=== PATIENT | female | born 1985 | race Caucasian/White ===

== ENCOUNTER → 2016-11-13 | Day surgery (SDC) | payer OTHER ==
[~2016-11-13] VITALS: Ht 165.1 cm; Wt 98.2 kg
[~2016-11-13] MED LIST: ADVIL200 MG PO; DOXYCYCLINE100 MG PO; MOTRIN800 MG PO; TRAMADOL HCL50 MG PO
--- NOTE | ~2016-11-13 | OR ---
PATIENT'S NAME: ROSALINO CAMPOVERDE [facility] AGE: 31 Y [address] ROOM: [place] [address] [place] [facility] [place]: [place]13/2016 OR/Procedure Report DISCHARGE DATE: FAMILY PHYSICIAN: Rebeka Vines ATTENDING PHYSICIAN: ANJELICA ARNOLD SURGEON: Anjelica Arnold MD TOOL SHAPER SET UP OPERATOR: None. DATE OF PROCEDURE: 11/13/2016 PROCEDURE PERFORMED: Suction dilation and curettage. PREOPERATIVE DIAGNOSIS: Embryonic demise at approximately 9 weeks. Blood type AB positive. POSTOPERATIVE DIAGNOSIS: Embryonic demise at approximately 9 weeks. Blood type AB positive. ALLERGIES: THE PATIENT HAS AN ALLERGY TO AMOXICILLIN AND CODEINE. ANESTHESIA: General. FINDINGS: She had an approximately [id number] uterus. Appropriate amount of products of conception removed. SPECIMENS: Products of conception. ESTIMATED BLOOD LOSS: 100 mL. ANTIBIOTICS: 100 mg of doxycycline IV. COMPLICATIONS: None. DISPOSITION: The patient is stable and sent to PACU. INDICATIONS FOR PROCEDURE: The patient is a 31-year-old G1, P0, who was initially evaluated at an outside ultrasound facility on November 09, for an early viability ultrasound. They were unable to find heart tones at that time. The patient was approximately 10 weeks gestational age by her LMP, but was measuring approximately 9 weeks by crown-rump length. Repeat ultrasound was performed at our office transvaginally with again no findings of heart tones. The fetus did appear to be approximately 9 weeks in size. The couple was counseled that this was consistent with an embryonic demise. She was counseled regarding her options including expectant management, medical management with Cytotec, and surgical management with dilation and curettage, and she opted to proceed with surgical management. The patient was seen in the preoperative area where all consents were reviewed and signed with PATIENT'S NAME: ROSALINO CAMPOVERDE [facility] AGE: 31 Y [address] ROOM: [place] [address] [place] [facility] [place]: 11/13/2016 OR/Procedure Report DISCHARGE DATE: FAMILY PHYSICIAN: Rebeka Vines ATTENDING PHYSICIAN: ANJELICA ARNOLD. She was aware of the risks of the procedure to include, but not limited to risk of bleeding, risk of infection, risks associated with anesthesia, risk of thromboembolism, risk of injury to bowel and bladder, and risk of possible uterine perforation. DESCRIPTION OF PROCEDURE: The patient was taken back to the operating room where a time-out was performed to confirm correct patient and correct procedure. She was placed under general anesthesia without difficulty. She was placed in dorsal lithotomy position with legs in candy-cane stirrups. She was prepped and draped in the usual sterile fashion. A weighted speculum was placed, and a Montse used to retract anteriorly to see the cervix. A single- toothed tenaculum was applied to the cervix and gentle traction applied. Cervix was progressively dilated to accommodate a 9 mm suction curette. Suction device was tested and found to be adequate. Suction curette was gently advanced, suction started, and products removed. Several passes were made with the suction curette, and then sharp curettage was performed until a gritty texture was noted throughout the uterus. Two to three additional passes were made gently with the suction curette to ensure no further remaining products. The tenaculum was removed from the cervix, and sites appeared to be hemostatic. All remaining instruments were removed from the vagina. All needle, sponge, and instrument counts were noted to be correct x2, and the patient was taken back to the recovery room in stable condition. MD ERIC CERVANTES/shoshanal /[id number] d: 11/13/16 1538 t: 11/16/16 0355, OPERATIVE SUMMARY
[2016-11-13 06:41] LABS: BASOPHIL % 0.2 %; EOSINOPHIL # 0.1 K/uL (0.0-0.5); EOSINOPHIL % 2.1 %; HEMATOCRIT 38.1 % (33.0-46.0); HEMOGLOBIN 12.9 g/dL (11.0-15.0); IMMATURE GRANULOCYTE % 0.4 %; LYMPHOCYTE # 1.7 K/uL (0.8-4.0); LYMPHOCYTE % 32.7 %; MCH 27.9 pg (27.0-34.0); MCHC 33.9 gm/dL (32.0-36.5); MCV 82.5 fl (83.0-98.0); MONOCYTE # 0.3 K/uL (0.0-1.0); MONOCYTE % 6.6 %; MPV 10.4 fl (9.4-12.4); NRBC % 0 /100WBC (0-0.00); PLATELET COUNT 217 K/uL (150-450); RBC 4.62 M/uL (3.50-5.50); RDW-CV 13.7 % (11.9-14.6); WBC 5.1 K/uL (4.0-11.0)
== END ==
LOC: GPOC 11-09 14:00 → GSDC 05:37 → GPOC 14:00 → GSDC 14:00
PROVIDERS: Obstetrics & Gynecology
PROC: 0UDB7ZX Extraction of Endometrium, Via Natural or Artificial Opening, Diagnostic (ICD-10-PCS; principal; 2016-11-13)
DX: O02.1 Missed abortion (principal); Z88.1 Allergy status to other antibiotic agents; Z88.6 Allergy status to analgesic agent
CPT/HCPCS: J1100; J2001; J2210; J2250; J2405; J7030; J7060